=== PATIENT | female | born 1990 | race African-American/Black ===

== ENCOUNTER 2022-05-18 12:18 | Emergency (ER) | payer MEDICAID ==
[~2022-05-18] VITALS: Ht 167.6 cm; Wt 105.7 kg
[2022-05-18 12:29] VITALS: BP 147/95
--- NOTE | 2022-05-18 14:44 | NUR ---
Note undone in EDM - 05/18/22 at 1447 by [id number] PT AMBULATED TO BED 12. / WALKED IN C/O RASH AROUND BODY. DENIES SOB. PT ALSO REPORTS VAGINAL BLEED X 3 WKS INTERMITTENTLY. PT REPORTS BEING . UNK DATE OF . REPORTS LMS IN APRIL. DENIES ABD PAIN. G6 ALLERGY: PCN, AMOXICILLIN PMH: PTSD, ANXIETY, ASTHMA
--- NOTE | 2022-05-18 14:44 | NUR ---
PT CALLED IN LOBBY. NO ANSWER. ERMD MADE AWARE
--- NOTE | 2022-05-18 15:00 | NUR ---
PT CALLED AGAIN IN LOBBY. NO ANSWER.
--- NOTE | 2022-05-18 15:15 | NUR ---
PT LEFT WITHOUT BEING SEEN. NO ANSWER IN LOBBY
== END 2022-05-18 14:44 | disposition left against medical advice (07) ==
LOC: MED 12:18
DX: O46.91 Antepartum hemorrhage, unspecified, first trimester (principal); Z3A.01 Less than 8 weeks gestation of pregnancy; Z53.21 Procedure and treatment not carried out due to patient leaving prior to being seen by health care provider
CPT/HCPCS: 99281